=== PATIENT | male | born 1985 | race Caucasian/White ===

== ENCOUNTER 2016-12-26 11:20 | Emergency (ER) | payer OTHER ==
[~2016-12-26] VITALS: Ht 182.9 cm; Wt 100.0 kg
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
[2016-12-26] MEDS ORDERED: SKEL800T97 PO (13:07)
[2016-12-26] MEDS ORDERED: CODE15TA2 PO (13:11)
[2016-12-26 13:20] VITALS: BP 131/78
== END 2016-12-26 13:22 | disposition home or self-care (01) ==
LOC: M ED 11:20
DX: S46.911A Strain of unspecified muscle, fascia and tendon at shoulder and upper arm level, right arm, initial encounter (principal); S13.4XXA Sprain of ligaments of cervical spine, initial encounter; S33.5XXA Sprain of ligaments of lumbar spine, initial encounter; V49.40XA Driver injured in collision with unspecified motor vehicles in traffic accident, initial encounter; Y92.410 Unspecified street and highway as the place of occurrence of the external cause; Y93.89 Activity, other specified; Y99.9 Unspecified external cause status

== ENCOUNTER 2016-12-31 11:58 | Emergency (ER) | payer OTHER ==
[~2016-12-31] VITALS: Ht 182.9 cm; Wt 220.0 kg
[~2016-12-31 11:58] MED LIST: CODE15TA2 PO; SKEL800T97 PO
[2016-12-31 11:59] VITALS: BP 155/90
[2016-12-31] MEDS ORDERED: ROBA500T PO (12:42)
[2016-12-31] MEDS ORDERED: BENA25TA10 PO (12:42)
[2016-12-31] MEDS ORDERED: TRIA1CR TOP (12:42)
== END 2016-12-31 13:03 | disposition home or self-care (01) ==
LOC: M ED 11:58
DX: T78.40XA Allergy, unspecified, initial encounter (principal); L29.9 Pruritus, unspecified; S16.1XXA Strain of muscle, fascia and tendon at neck level, initial encounter; X58.XXXA Exposure to other specified factors, initial encounter; Y92.099 Unspecified place in other non-institutional residence as the place of occurrence of the external cause; Y93.89 Activity, other specified; Y99.9 Unspecified external cause status